=== PATIENT | female | born 1985 | race Caucasian/White ===

== ENCOUNTER 2020-05-23 10:43 | Outpatient (CLI) | payer BC ==
--- NOTE | 2020-05-23 11:44 | ULT ---
LIMITED RIGHT BREAST ULTRASOUND: Date: 05/23/2020 HISTORY: Abnormal mammogram of 05/14/2020 from [facility] in [place], [place]. FINDINGS: Correlation is made with mammograms of 05/14/2020. Sonographic evaluation of the retroareolar aspect of the right breast demonstrates a 1.3 x 0.6 x 1.3 cm cyst at the 9 o'clock position corresponding to the finding on the mammogram. IMPRESSION: BI-RADS Category 2 - Benign findings. Return to annual mammographic screening. POS: OFF
== END 2020-05-23 10:44 | disposition home or self-care (01) ==
LOC: BICULT 10:43
PROVIDERS: ATTEND Obstetrics & Gynecology
DX: R92.8 Other abnormal and inconclusive findings on diagnostic imaging of breast (principal)

== ENCOUNTER 2024-12-28 07:53 | Outpatient (CLI) | payer BC | END 2024-12-28 07:54 | disposition home or self-care (01) | LOC: BICMAMMO 07:53 | PROVIDERS: ATTEND Student in an Organized Health Care Education/Training Program | DX: R92.8 Other abnormal and inconclusive findings on diagnostic imaging of breast (principal) | CPT/HCPCS: G0279 ==